=== PATIENT | male | born 1990 | race Hispanic/Latino ===

== ENCOUNTER 2016-05-07 05:15 | Emergency (ER) | payer OTHER ==
[~2016-05-07] VITALS: Ht 167.6 cm; Wt 63.6 kg
[~2016-05-07 05:15] MED LIST: CIPR-231 PO; IBUP-1827 PO; LOPE1TAB13 PO
[2016-05-07 05:18] VITALS: BP 125/84; PULSE 62; RESP 16; O2SAT 100
--- NOTE | 2016-05-07 05:36 | ED.REPORT ---
HPI-General Illness Date of Service May 07, 2016 ED Provider: Dr. Jay Justin M.D. A healthy 26 year old male presents to the ED with upper back pain onset two days ago. The patient also reports left shoulder pain, neck pain, chest pain, and muscle stiffness. He denies numbness, weakness, or other symptoms. The patient has applied Icy/Hot with no relief. He performs physical labor for a living. Nursing Notes Stated Complaint: UPPER BODY PAIN/STIFF Chief Complaint: General Complaint Nursing Notes Reviewed: Yes Allergies: Coded Allergies: No Known Allergies (Unverified Allergy, Unknown, 10/11/14) Scheduled Ciprofloxacin (Cipro) 500 Mg Tablet 500 MG PO BID Loperamide/Simethicone (Imodium Multi-Symptom Rel Cplt) 1 Each Tablet 1 EACH PO with each loose stoo Scheduled PRN Ibuprofen (Ibuprofen) 600 Mg Tablet 600 MG PO QID PRN PRN For Pain Methocarbamol (Robaxin-750) 750 Mg Tablet 1-2 TAB PO QID PRN PRN For Spasm Naproxen (Naprosyn) 500 Mg Tablet 500 MG PO BID PRN PRN For Pain General Time Seen by MD: 05:36 Chief Complaint Back pain Hx Obtained From: Patient Arrived By: Walk-in Sudden in Onset?: No Onset Occurred: 2 days ago Symptom Duration: Since onset Location: : Back: Chest Quality: Painful Severity: Current: Moderate Severity: Maximum: Moderate Associated with: Reports: Chest pain, Neck pain, Denies: Fever Pertinent Negative: Relieved by nothing Recent Healthcare: No recent doctor visit Past Medical History Past Medical History None Past Surgical History None reported Family History noncontributory Smoking History Never Smoker Social History Alcohol Use: "Social" Drug Use: THC Other Social History: Good social support, Local resident Ambulatory Status Independent Review of Systems + Muscle stiffness Full Review of Systems Respiratory: Denies: Non-productive cough, Shortness of breath Cardiovascular: Reports: Chest pain GI: Denies: Diarrhea, Vomiting Musculoskeletal: Reports: Back pain, Joint pain (Left shoulder), Neck pain Neurologic: Denies: Numbness, Weakness Complete sys rev & neg: except as marked. Physical Exam Vital Signs Vital Signs Date Time Temp Pulse Resp B/P Pulse Ox O2 Delivery O2 Flow Rate FiO2 05/07/16 05:56 36.7 64 18 135/80 99 Room Air 05/07/16 05:18 36.8 62 16 125/84 100 Room Air Initial VS: Reviewed Head / Eyes: Atraumatic, Normocephalic ENT: Conjunctiva normal, No scleral icterus Extremities: Vascular intact, Neuro intact, No swelling Skin: Warm, Dry, No cyanosis Psychiatric: Mood/affect normal, Behavior normal, Normal thought content General/Constitutional: Awake, Alert, No acute distress Neck: Full range of motion Neck / Muscle Tenderness: Positive: Paraspinal L..., Trapezius L... Respiratory / Chest: Atraumatic Chest Wall / Ribs: Positive: Chest tender upper L, Chest tender upper R Neurologic: Oriented X3, Speech NL, No motor deficits, No sensory deficits Re-Eval/Medical Decision Med Decision/Clinical Course Healthy 26-year-old with neck stiffness and muscular stiffness. 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 No neurologic findings. Home with Robaxin, Naprosyn, soft collar for sleep. Work note for today provided. Discharged in stable condition. Source of Hx: Old records Time of Eval: 05:47 Patient Status: Condition improved Re-Evaluation/Progress Note: Discussed with patient physical exam findings, diagnosis, and plan for discharge. Follow-up and return to the ER instructions given. Patient agrees with plan for care and all questions were addressed. Counseled Regarding: Diagnosis, Need for follow-up, When/why to return to ED Discharge & Departure Shift Change Sign-Out Response to Therapy: Improved Primary Impression: Cervical strain Encounter type: initial encounter Qualified Code: S16.1XXA - Strain of muscle, fascia and tendon at neck level, initial encounter Additional Impression: Muscle stiffness Disposition: Home Discharge Condition All VS Reviewed: Yes Condition: Improved Patient Instructions: Cervical Spine Strain (ED) Additional Instructions: Begin Naprosyn twice daily, always with food. Robaxin 1-2 tablets four times daily for spasm. Follow-up with your doctor in the office. Return if any immediate issues, particularly numbness, weakness, or other new symptoms of concern. Out of work today Apply heat frequently. Rest. Wear Soft cervical collar for sleep for the next 4-5 days. Referrals: [facility] (PCP) [facility] Scribe Attestation Portions of this note were transcribed by Marlyn Mcknight. I, Dr. Justin, personally performed the history, physical exam, and medical decision-making; I reviewed and confirmed the accuracy of the information in the transcribed note. Signed by: Bry Murillo, 05/07/2016, 06:00 copies to: [facility] Jay Justin MD May 07, 2016 05:36 MARLYN MCKNIGHT May 07, 2016 05:43
[2016-05-07] MEDS ORDERED: Ketorolac 30 mg/mL 2 mL Inj IM ONE (05:40)
[2016-05-07] MEDS ORDERED: METH-313 PO (05:46)
[2016-05-07] MEDS ORDERED: NAPR500T PO (05:46)
[2016-05-07 05:56] VITALS: BP 135/80; PULSE 64; RESP 18; O2SAT 99
== END 2016-05-07 05:57 | disposition home or self-care (01) ==
LOC: SED 05:15
DX: S16.1XXA Strain of muscle, fascia and tendon at neck level, initial encounter (principal); M25.60 Stiffness of unspecified joint, not elsewhere classified; X50.3XXA Overexertion from repetitive movements, initial encounter; Y93.89 Activity, other specified; Y92.89 Other specified places as the place of occurrence of the external cause; Y99.0 Civilian activity done for income or pay
CPT/HCPCS: 96372; 99283; J1885